=== PATIENT | female | born 1985 | race Caucasian/White ===

== ENCOUNTER 2024-12-07 14:06 | Emergency (ER) | payer OTHER, SELFPAY ==
--- NOTE | ~2024-12-07 | US_ITS ---
RIGHT LOWER EXTREMITY VENOUS ULTRASOUND Ordering provider: Eliza Kaminski PA-C History: . edema, pain, hx DVT . Comparison: None. FINDINGS: --COMMON FEMORAL: Patent and free of thrombus. Normal compressibility, phasic flow and augmentation. --PROXIMAL SUPERFICIAL FEMORAL: Patent and free of thrombus. Normal compressibility, phasic flow and augmentation. --DISTAL SUPERFICIAL FEMORAL: Patent and free of thrombus. Normal compressibility, phasic flow and au gmentation. --POPLITEAL: Patent and free of thrombus. Normal compressibility, phasic flow and augmentation. --POSTERIOR TIBIAL: Patent and free of thrombus. Normal compressibility, phasic flow and augmentation . Thrombosis seen in the greater saphenous vein. IMPRESSION: Thrombosis in the greater saphenous vein. No deep vein thrombosis. Reviewed, dictated and finalized at location A.
--- OUTSIDE RECORDS SUMMARY | 2024-12-07 14:09 | XMS_ITS | Clinical Summary ---
Author Organization [facility] Address [address] [place] [place] [address] Care Team Providers Care Wet Trimmer Name Role Phone Karen Mojica MD Primary Care Provider Source Comments [facility],non-owned Affiliates and Associated Physician Practices is amultiple site organization consisting of ambulatory clinics and hospital sitesin [place], [place]. This disclosure is being madepursuant to the Care Everywhere program and may not contain all information available regarding this patient. Last updated 18.[facility] Allergies Active Allergy Reactions Criticality Noted Date Comments Cefaclor Unknown,Swelling High 10/22/2007 Unknown reaction (occurred when she was a child) Happened in early chilhood - possible overdose. Not sure of reaction. Medications * Be aware that medications may not be up to date on this document. Alwaysverify current medications with the patient. fluticasone propionate (Flonase) 50 MCG/ACT nasal spray INHALE 1 SPRAY IN EACH NOSTRIL EVERY DAY 10/28/19 23 Active spironolactone (Aldactone) 25 MG tablet Take 1 (one) tablet by mouth once daily 30 tablet 08/20/19 25 Active losartan-hydroC HLOROthiazide (Hyzaar) 100-25 MG tablet Take 1 (one) tablet by mouth once daily 30 tablet 08/20/19 25 Active blood glucose test stripIndication s:Type 2 diabetes mellitus without complication, without long-term current use of insulin ([facility]) Use 1 (one) strip once daily 100 strip 4 10/30/19 25 Active Blood Glucose Monitoring Suppl (GlucoCom Monitor) w/Device KITIndications: Type 2 diabetes mellitus without complication, without long-term current use of insulin ([facility]) Use 1 device as directed 1 kit 10/30/19 25 Active lancets MISCIndications :Type 2 diabetes mellitus without complication, without long-term current use of insulin ([facility]) Use 1 Each once daily 100 Each 4 10/30/19 25 Active ONETOUCH DELICA PLUS 30G FINE LANCETS 1 Each once daily 10/31/19 25 Active Semaglutide(0.2 5 or 0.5MG/DOS) 2 MG/3ML Solution Pen-injector (Ozempic (0.25 or 0.5 MG/DOSE))Indica tions:Type 2 diabetes mellitus without complication, without long-term current use of insulin ([facility]),Class 3 severe obesity due to excess calories with serious comorbidity and body mass index (BMI) of 45.0 to 49.9 in adult ([facility]),Metabolic dysfunction-ass ociated steatotic liver disease (MASLD) Inject 0.5 mg subcutaneously every 7 days (once a week) 3 mL 5 11/29/19 25 Active Multiple Vitamins-Minera ls (WOMENS MULTI VITAMIN & MINERAL PO) Take by mouth once daily 025 Discontin ued(List Clean-Up) cetirizine (ZyrTEC) 5 MG tablet Take 1 (one) tablet by mouth once daily 025 Discontin ued(List Clean-Up) tirzepatide (Zepbound) 2.5 MG/0.5ML injectionIndica tions:Class 3 severe obesity due to excess calories with serious comorbidity and body mass index (BMI) of 45.0 to 49.9 in adult ([facility]) Inject 2.5 (two and one-half) mg subcutaneously every 7 days 2 mL 09/18/19 25 025 Discontin ued(Tx Complete) tirzepatide (Zepbound) 5 MG/0.5ML injectionIndica tions:Class 3 severe obesity due to excess calories with serious comorbidity and body mass index (BMI) of 45.0 to 49.9 in adult ([facility]) Inject 5 (five) mg subcutaneously every 7 days 2 mL 09/18/19 25 025 Discontin ued(List Clean-Up) tirzepatide (Zepbound) 7.5 MG/0.5ML injectionIndica tions:Class 3 severe obesity due to excess calories with serious comorbidity and body mass index (BMI) of 45.0 to 49.9 in adult ([facility]) Inject 7.5 (seven and one-half) mg subcutaneously every 7 days 2 mL 09/18/19 25 025 Discontin ued(List Clean-Up) tirzepatide (Zepbound) 10 MG/0.5ML injectionIndica tions:Class 3 severe obesity due to excess calories with serious comorbidity and body mass index (BMI) of 45.0 to 49.9 in adult ([facility]) Inject 10 (ten) mg subcutaneously every 7 days 2 mL 3 09/18/19 25 025 Discontin ued(List Clean-Up) Semaglutide(0.2 5 or 0.5MG/DOS) 2 MG/3ML Solution Pen-injector (Ozempic (0.25 or 0.5 MG/DOSE))Indica tions:Type 2 diabetes mellitus without complication, without long-term current use of insulin ([facility]),Class 3 severe obesity due to excess calories with serious comorbidity and body mass index (BMI) of 45.0 to 49.9 in adult ([facility]),Metabolic dysfunction-ass ociated steatotic liver disease (MASLD) Inject 0.25 mg subcutaneously every 7 days 3 mL 2 10/22/19 25 025 Discontin ued(Reord er) amoxicillin-cla vulanate (Augmentin) 875-125 MG tablet Take 1 (one) tablet by mouth 2 times daily with morning and evening meal 20 tablet 10/22/19 25 025 Discontin ued(Tx Complete) Active Problems Problem Noted Date Diagnosed Date Metabolic dysfunction-associ ated steatotic liver disease (MASLD) 10/21/2024 Prediabetes 03/14/2024 Class 3 severe obesity due t o excess calories with serious comorbidity and body mass index (BMI) of 40.0 to 44.9 in adult 06/21/2023 Hypertension 08/05/2020 06/21/2023 Resolved Problems Problem Noted Date Diagnosed Date Resolved Date 08/29/2022 06/21/2023 10/24/2023 Overview (06/21/2023): Last Assessment & Plan: Chronic HTN on Labetalol 400 mg TID at present. Checks Bps at home and they are ok. Thinks her elevated pressure is do to nerves today. Will get baseline labs and 24 hr urine for protein. H/O A2 DM with prior (was on Lantus). Will check early glucola and A1C. AMA discussed - Discussed risks of chromosomal defects/hypertension/diabetes/miscarriage with increasing age. Discussed optional testing available. Screening folder given and explained to patient. Discussed location of triage. Pt received education on the benefits and management of . Discussed genetic testing options. labs done today. F/U in 4 weeks. Gestational diabetes 02/14/2020 06/21/2023 024 Keloid 05/07/2008 06/21/2023 03/13/2024 Contraceptive surveillance 05/07/2008 06/21/2023 0 10/24/2023 Encounters Date Type Department Care Team Description 12/02/2024 9:00 AM CDT - 12/02/2024 11:59 PM CDT Hospital Encounter [facility] - Diabetes Education [address] [place] [address] Karen Mojica MD Discharge Disposition: Home or Self Care 12/02/2024 Travel 11/28/2024 11:00 AM CDT Office Visit [facility] - Family Medicine [address] [place] [phone] Karen Mojica MD Type 2 diabetes mellitus without complication, without long-term current use of insulin (HCC) (Primary Dx); Class 3 severe obesity due to excess calories with serious comorbidity and body mass index (BMI) of 45.0 to 49.9 in adult (HCC); Metabolic dysfunction-associa lion steatotic liver disease (MASLD); Hypertension, unspecified type 11/25/2024 9:00 AM CDT - 11/25/2024 11:59 PM CDT Hospital Encounter [facility] Diabetes Education [address] [place] [phone] Karen Mojica MD Discharge Disposition: Home or Self Care 11/25/2024 Travel 11/18/2024 9:00 AM CDT - 11/18/2024 11:59 PM CDT Hospital Encounter [facility] Education [address] [place] [phone] Karen Mojica MD Discharge Disposition: Home or Self Care 11/11/2024 9:00 AM CDT - 11/11/2024 11:59 PM CDT Hospital Encounter [facility] Diabetes [address] [address] Karen Mojica MD Discharge Disposition: Home or Self Care 10/29/2024 9:00 AM CDT - 10/29/2024 11:59 PM CDT Hospital Encounter [facility] Education [address] [place] [phone] Karen Mojica MD Discharge Disposition: Home or Self Care 10/29/2024 Nurse Triage [facility] Family [address] [phone] Karen Mojica MD Order 10/28/2024 8:30 AM CDT - 10/28/2024 11:59 PM CDT Hospital Encounter [facility] CL[facility] NUTRITION [address] [place] [phone] Karen Mojica MD Discharge Disposition: Home or Self Care 10/23/2024 Travel 10/21/2024 10:00 AM CDT Office Visit [facility] Family [address] [phone] Karen Mojica MD Type 2 diabetes mellitus without complication, without long-term current use of insulin (Primary Dx); Class 3 severe obesity due to excess calories with serious comorbidity and body mass index (BMI) of 45.0 to 49.9 in adult; Hypertension, unspecified type; Metabolic dysfunction-associa lion steatotic liver disease (MASLD); Sinusitis, unspecified chronicity, unspecified location 10/21/2024 Travel 09/21/2024 8:23 AM CRIMPING MACHINE OPERATOR - 09/21/2024 11:59 PM CRIMPING MACHINE OPERATOR Hospital Encounter [facility] MRI [address] [place] [phone] Juju Almaraz MD Discharge Disposition: Home or Self Care 09/21/2024 Travel 09/19/2024 Telephone [facility] Physician [address] [phone] Saida Dixon, RN Appointment 09/18/2024 1:30 PM CRIMPING MACHINE OPERATOR Office Visit [facility] Physician [address] [phone] Lito Beckett III, MD Class 3 severe obesity due to excess calories with serious comorbidity and body mass index (BMI) of 45.0 to 49.9 in adult (Primary Dx); Metabolic dysfunction-associa lion steatotic liver disease (MASLD); Metabolic syndrome; Prediabetes 09/18/2024 Travel 09/11/2024 2:43 PM CRIMPING MACHINE OPERATOR - 09/11/2024 11:59 PM CRIMPING MACHINE OPERATOR Hospital Encounter [facility] LAB OP DRAW STATION [address] [place] [address] Discharge Disposition: Home or Self Care 09/11/2024 1:30 PM CRIMPING MACHINE OPERATOR Office Visit [facility] Physician [address] [phone] Karen Mojica MD Syn, Wing-Kin, MD Metabolic dysfunction-associa lion steatotic liver disease (MASLD) (Primary Dx); Class 3 severe obesity due to excess calories with serious comorbidity and body mass index (BMI) of 45.0 to 49.9 in adult; Hepatic steatosis; Hepatomegaly; Metabolic syndrome; Elevated liver enzymes 09/11/2024 Travel from Last 3 Months Immunizations Immunization Administration Dates Next Due INFLUENZA VACCINE, TRIV. (AF LURIA, FLUZONE TRIVALENT; 6MO+) (IIV3) 04/08/2021 COVID PFIZER 12+YR 30MCG/0.3mL 04/17/2023 Comirnaty Covd-19 Mrna Vacci ne (Nucleoside Modified) 04/05/2024 Covid Pfizer primary monoval ent 12+ yr 0.3mL Purple cap 05/19/2021,09/10/2020,08/05/2020 DTaP VACCINE IM (6wk-6yrs) 03/24/1990,,1985,1984,1985 FLU VACCINE QUAD IIV4 SPLIT 0.25 ML IM 06/02/2016 HEP A PEDS 2 DOSE 09/29/2006 HEP A VACCINE, ADULT 06/19/2019,11/23/2018 HEP B VACCINE, PED/ADOL 10/26/1998,10/25/1997, HIB VACCINE 01/22/1988 Human Papilloma Virus Alyssa valent Vaccine 01/30/2007,09/29/2006,07/28/2006 INFLUENZA VACCINE 04/05/2024,04/17/2023 INFLUENZA VACCINE, CELL CULT URE, QUADR. (FLUCELVAX QUADRIVALENT; 6MO+) (CCIIV4) 04/17/2023 INFLUENZA VACCINE, QUADR. (F LUZONE; FLULAVAL; FLUARIX; AFLURIA QUADRIVALENT; 6MO+), 0.5 ML (IIV4) 04/20/2022,04/07/2020,04/29/2019,2017 MMR 04/05/1990,03/24/1986 POLIO IPV 03/24/1990, 6,1985,1984 TDAP (7yrs+) 01/23/2023,03/17/2020,11/23/2018 Td (Adult), 2 Lf Tetanus Tox oid, Adsorbed, Pf 10/06/2006,04/22/1990 Family History Medical History Relation Name Comments CAD (Coronary Artery Disease) Father DVT - Deep Vein Thrombosis Father f rom hip surgery and leg Glaucoma Father High Cholesterol Father Hypertension Father Alzheimer's Disease Maternal Grandfather 2009 Diabetes - Type 2 Maternal Grandfather High Blood Pressure Maternal Grandfather Dementia Maternal Grandmother Hypertension Maternal Grandmother Alzheimer's Disease Mother since 12 06 Hypertension Mother Other Mother pre diabetic CAD (Coronary Artery Disease) Paternal Grandfather from heart attack Other Paternal Grandmother passed in 2003 -beka gehrig's disease Relation Name Status Comments Father Alive Maternal Grandfather Maternal Grandmother Alive Mother Alive Paternal Grandfather Paternal Grandmother Social History Tobacco Use Types Packs/Day Years Used Date Smoking Tobacco: Never Passive Smoke Exposure: Never Smokeless Tobacco: Never Tobacco Cessation:Counseling Given: No Alcohol Use Standard Drinks/Week Comments Not Currently 0 (1 standard drink = 0.6 oz pur e alcohol) social PHQ-2 Answer Date Recorded Patient Health Questionnaire-2 Score 0 11/21/2024 Comments No Sex and Gender Information Value Date Recorded Sex Assigned at Not on file Legal Sex Female 1:58 PM CRIMPING MACHINE OPERATOR Gender Identity Not on file Sexual Orientation Not on file Last Filed Vital Signs Vital Sign Reading Time Taken Comments Blood Pressure 127/85 11/28/2024 11:22 AM CDT Pulse 82 11/28/2024 11:22 AM CDT Temperature 36.9 C (98.4 F) 11/28/2024 11:22 AM CDT Respiratory Rate 12 01/08/2024 8:39 AM CDT Oxygen Saturation 98% 11/28/2024 11: 22 AM CDT Inhaled Oxygen Concentration - - Weight 132.1 kg (291 lb 3.2 oz) 025 11:22 AM CDT Height 170.2 cm (5' 7 ) 11/28/2024 11:2 2 AM CDT Body Mass Index 45.61 11/28/2024 11:22 AM CDT Plan of Treatment Upcoming Encounters Date Type Department Care Team (Late st Contact Info) Description 12/25/2024 12:30 PM CDT Office Visit [facility] - GI [address] [facility] [place] [phone] Juju Almaraz MD [address] [facility] [address] [place] [phone] 12/30/2024 9:40 AM CDT Office Visit [facility] - Family Medicine [address] [facility], [address] [phone] Karen Mojica MD [address] [place] [address] 01/29/2025 3:00 PM CDT Office Visit [facility] - [address] [place] [phone] Lito Beckett III, MD [address] [facility] [address] [place] [phone] 02/25/2025 9:00 AM CDT Office Visit [facility] - General Dermatology [address], [facility] [address] [place] [address] Gabriella Alexander, [address] [place] [address] Health Maintenance Due Date Last Done Comments PNEUMOCOCCAL VACCINE (1 of 2 - PCV) 01/06/2004 COVID-19 VACCINE ( - 2023- season) 2024 04/05/2024, 04/17/2023, 05/19/2021, Additional history exists PAP SMEAR 05/08/2026 05/08/2023, 07/2022, 04/05/2012 DTAP/TDAP/TD VACCINES (9 - Td or Tdap) 01/23/2033 01/23/2023, 03/17/2020, 11/23/2018, Additional history exists ZOSTER VACCINE (1 of 2) 2035 HIB VACCINE Completed 01/22/1988 HEPATITIS B VACCINE Completed 10/26/1998, 10/25/1997, 09/25/1995 HPV VACCINE Completed 01/30/2007, 03/2007, 07/28/2006 HIV SCREENING Completed 08/24/2022 INFLUENZA VACCINE Completed 04/05/2024, , 04/17/2023, Additional history exists DEPRESSION SCREENING Completed 08/20/2024, 07/26/2023, 06/21/2023 HEPATITIS C SCREENING Completed 09/11/2024 , 06/10/2024, 08/16/2023, Additional history exists MENINGOCOCCAL (Group B) VACCINE SHARED DECISION-MAKING Aged Out No longer eligible based on patient's age to complete this topic MENINGOCOCCAL GROUPS A/C/Y/W VACCINE Aged Out No longer eligible based on patient's age to complete this topic Goals Goal Patient Goal Type Associated Problems Recent Progress Patient-Stated? Author Medication Management General On track( 025 2:15 PM CRIMPING MACHINE OPERATOR) Saida Dick, CAROLINE Note: Expected end date: ongoing Interventions: Take all medications as prescribed Procedures Procedure Name Priority Date/Time Associated Diagnosis Comments HEMOGLOBIN A1C Routine 09/26/2024 8:19 AM CRIMPING MACHINE OPERATOR Prediabetes MRI ELASTOGRAPHY Routine 09/21/2024 9:23 AM CRIMPING MACHINE OPERATOR Hepatic steatosis HEPATITIS C ANTIBODY Routine 09/11/2024 3:02 PM CRIMPING MACHINE OPERATOR Hepatic steatosis HEPATITIS B CORE ANTIBODY TOTAL Routine 09/11/2024 3:02 PM CRIMPING MACHINE OPERATOR Hepatic steatosis MITOCHONDRIAL ANTIBODY SCREEN Routine 09/11/2024 3:02 PM CRIMPING MACHINE OPERATOR Hepatic steatosis TISSUE TRANSGLUTAMINASE AB IGA Routine 09/11/2024 3:02 PM CRIMPING MACHINE OPERATOR Hepatic steatosis IGG SUBCLASS 4 Routine 09/11/2024 3:02 PM CRIMPING MACHINE OPERATOR Hepatic steatosis IGG BLOOD Routine 09/11/2024 3:02 PM CRIMPING MACHINE OPERATOR Hepatic steatosis FERRITIN Routine 09/11/2024 3:02 PM CRIMPING MACHINE OPERATOR Hepatic steatosis CERULOPLASMIN Routine 09/11/2024 3:02 PM CRIMPING MACHINE OPERATOR Hepatic steatosis ROBBY BLOOD SCREEN W/REFLEX TITER Routine 09/11/2024 3:02 PM CRIMPING MACHINE OPERATOR Hepatic steatosis ENDOMYSIAL ANTIBODY IGA Routine 09/11/19 3:02 PM CRIMPING MACHINE OPERATOR Hepatic steatosis IGA BLOOD Routine 09/11/2024 3:02 PM CRIMPING MACHINE OPERATOR Hepatic steatosis SLA AUTOANTIBODY Routine 09/11/2024 3:02 PM CRIMPING MACHINE OPERATOR Hepatic steatosis MICROSOMAL ANTIBODY LIVER/KIDNEY Routine 09/11/2024 3:02 PM CRIMPING MACHINE OPERATOR Hepatic steatosis IGM BLOOD Routine 09/11/2024 3:02 PM CRIMPING MACHINE OPERATOR Hepatic steatosis PGNIZ-[id number] BLOOD Routine 09/11/2024 3:02 PM CRIMPING MACHINE OPERATOR Hepatic steatosis CBC W AUTO DIFFERENTIAL Routine 09/11/19 25 3:02 PM CRIMPING MACHINE OPERATOR Hepatic steatosis COMPREHENSIVE METABOLIC PANEL Routine 09/11/2024 3:02 PM CRIMPING MACHINE OPERATOR Hepatic steatosis PT-INR SLH Routine 09/11/2024 3:02 PM CRIMPING MACHINE OPERATOR Hepatic steatosis LIVER CYTOSOLIC AG TYPE 1 (LC-1) AB IGG Routine 09/11/2024 3:02 PM CRIMPING MACHINE OPERATOR Hepatic steatosis SMOOTH MUSCLE ANTIBODY W REFLEX TITER Routine 09/11/2024 3:02 PM CRIMPING MACHINE OPERATOR Hepatic steatosis from Last 3 Months Results * (ABNORMAL) HEMOGLOBIN A1C (09/26/2024 8:19 AM CRIMPING MACHINE OPERATOR) Hemoglobin A1c 7.0(H) <5.7 % of total Hgb [facility] Comment: For someone without known diabetes, a hemoglobin A1c value of 6.5% or greater indicates that they may have diabetes and this should be confirmed with a follow-up test. For someone with known diabetes, a value <7% indicates that their diabetes is well controlled and a value greater than or equal to 7% indicates suboptimal control. A1c targets should be individualized based on duration of diabetes, age, comorbid conditions, and other considerations. Currently, no consensus exists regarding use of hemoglobin A1c for diagnosis of diabetes for children. Test Performed at: [id number] [id number] SIXTO DAUGHERTY MD Blood BLOOD SPECIMEN / Unknown 09/26/2024 8:19 AM CRIMPING MACHINE OPERATOR 09/26/2024 8:19 AM CRIMPING MACHINE OPERATOR Lito Beckett III, MD LAB - CHEMISTRY ORDERABLE S Final Result [facility] [id number] [place] [address] * MRI Elastography (09/21/2024 9:23 AM CRIMPING MACHINE OPERATOR) Anatomical Region Laterality Modality Abdomen Magnetic Resonan ce 09/23/2024 10:2 6 AM CRIMPING MACHINE OPERATOR Impressions 09/23/2024 10:58 AM CRIMPING MACHINE OPERATOR IMPRESSION: 1.Mean liver stiffness: 2.7 kPa. MR elastography estimates of hepatic stiffness (at 60 Hz) correlated with hepatic fibrosis stage: 2.5 - 2.9 kPa: Normal or inflammation.. 2.Hepatomegaly and diffuse moderate hepatic steatosis. 3.Borderline splenomegaly. Reference values (reference: Amor SK, et al. Magnetic resonance elastography of liver: Magn Reson Imaging Clin N Am 2014; 22(3):433-446). < 2.5 kPa: Normal. 2.5 - 2.9 kPa: Normal or Inflammation. 3.0 - 3.5 kPa: Stage 1 to 2 fibrosis. 3.6 - 4.0 kPa: State 2 to 3 fibrosis. 4.1 to 5.0 kPa: State 3 to 4 fibrosis. > 5 kPa: State 4 fibrosis or Cirrhosis. I, Talat Antonio MD have personally reviewed and interpreted this examination/study. > Interpreting Provider: Talat Antonio MD on 09/23/2024 10:58 AM Narrative 09/23/2024 10:58 AM CRIMPING MACHINE OPERATOR PROCEDURE: MRI ELASTOGRAPHY, DATE/TIME OF EXAM: 09/21/2024 9:23 AM, LOCATION [facility] INDICATION: K76.0: Hepatic steatosis ADDITIONAL CLINICAL INFORMATION: Ordering Provider Reason For Exam: [facility]nern for [facility] Technologist Note: Additional: COMPARISON: None. Protocol: Magnetic resonance imaging of the abdomen was performed without intravenous Gadolinium contrast. MR elastography was performed using the Resoundant system. Contrast: None COMPARISON: No prior magnetic resonance imaging is available for comparison. FINDINGS: Elastography: MR elastography was performed which demonstrated a mean liver stiffness of 2.7 kilopascals (kPa). This is consistent with normal liver stiffness (<2.5 kPa). Liver: Hepatomegaly. There is diffuse moderate hepatic steatosis. Focal liver lesions: None Bile ducts: Intrahepatic and extra hepatic bile duct are nondilated Gallbladder: There is a 2 mm filling defect along the nondependent portion of the gallbladder (series 3 image 31), likely a stone or polyp. Pancreas: Unremarkable Spleen: Borderline enlarged, measuring 13.5 cm it Adrenals: Unremarkable. Kidneys: A subcentimeter right kidney cyst, otherwise unremarkable. Other Findings: None. Procedure Note Talat Antonio MD - 09/23/2024 PROCEDURE: MRI ELASTOGRAPHY, DATE/TIME OF EXAM: 09/21/2024 9:23 AM, LOCATION [facility] INDICATION: K76.0: Hepatic steatosis ADDITIONAL CLINICAL INFORMATION: Ordering Provider Reason For Exam: [facility]n [facility] Technologist Note: Additional: COMPARISON: None. Protocol: Magnetic resonance imaging of the abdomen was performedwithout intravenous Gadolinium contrast. MR elastography was performed using the Resoundant system. Contrast: None COMPARISON: No prior magnetic resonance imaging is available for comparison. FINDINGS: Elastography: MR elastography was performed which demonstrated a meanliver stiffness of 2.7 kilopascals (kPa). This is consistent with normal liver stiffness (<2.5 kPa). Liver: Hepatomegaly. There is diffuse moderate hepatic steatosis. Focal liver lesions: None Bile ducts: Intrahepatic and extra hepatic bile duct are nondilated Gallbladder: There is a 2 mm filling defect along the nondependentportion of the gallbladder (series 3 image 31), likely a stone or polyp. Pancreas: Unremarkable Spleen: Borderline enlarged, measuring 13.5 cm it Adrenals: Unremarkable. Kidneys: A subcentimeter right kidney cyst, otherwise unremarkable. Other Findings: None. IMPRESSION: 1.Mean liver stiffness: 2.7 kPa. MR elastography estimates of hepatic stiffness (at 60 Hz) correlated with hepatic fibrosis stage: 2.5 - 2.9kPa: Normal or inflammation.. 2.Hepatomegaly and diffuse moderate hepatic steatosis. 3.Borderline splenomegaly. Reference values (reference: Amor SK, et al. Magnetic resonance elastography of liver: Magn Reson Imaging Clin N Am 2014; 22(3):433-446). < 2.5 kPa: Normal. 2.5 - 2.9 kPa: Normal or Inflammation. 3.0 - 3.5 kPa: Stage 1 to 2 fibrosis. 3.6 - 4.0 kPa: State 2 to 3 fibrosis. 4.1 to 5.0 kPa: State 3 to 4 fibrosis. > 5 kPa: State 4 fibrosis or Cirrhosis. I, Talat Antonio MD have personally reviewed and interpreted this examination/study. > Interpreting Provider: Talat Antonio MD on 0:58 AM Juju Almaraz MD MR ORDERABLES Final Result * PT-INR [facility] (09/11/2024 3:02 PM CRIMPING MACHINE OPERATOR) PT 13.1 12.1 - 14.8 Seconds 09/11/2024 3:48 PM CRIMPING MACHINE OPERATOR [facility] INR 1.0 See Comment 09/11/2024 3:48 PM CRIMPING MACHINE OPERATOR [facility] Comment:The suggested therap eutic range for standard coumadin (warfarin) therapy is an INR of 2.0-3.0. For high-risk patients (Mechanical Mitral Valve Prosthesis, etc.), the suggested prophylactic therapeutic range is an INR of 2.5-3.5. Blood BLOOD SPECIMEN / Unknown Lab Venipuncture / Unknown 09/11/2024 3:02 PM CRIMPING MACHINE OPERATOR 09/11/2024 3:18 PM CRIMPING MACHINE OPERATOR Juju Almaraz MD LAB - COAGULATION ORDERABLES Fin al Result [facility] [address] [place] [phone], [facility] [phone] * SOLUBLE LIVER ANTIGEN (SLA) ANTIBODY (09/11/2024 3:02 PM CRIMPING MACHINE OPERATOR) Soluable Liver Antigen Antibody IgG 1.9 0.0 - 24.9 U 09/15/2024 7:45 PM CRIMPING MACHINE OPERATOR [employer] ([facility]) Comment: REFERENCE INTERVAL: Soluble Liver Antigen Antibody, IgG 0.0 - 20.0 U ........... Negative 20.1 - 24.9 U ........... Equivocal 25.0 U or greater ....... Positive The presence of SLA antibodies has almost 100% specificity for autoimmune hepatitis, although only 12-30% have these antibodies. Thus, a negative SLA IgG test does not rule out autoimmune hepatitis. Performed by [facility], [address] [place] [address] [email or web address], Gonsalo Montiel MD, Lab. Director CLIA Number: [id number] Blood BLOOD SPECIMEN / Unknown Lab Venipuncture / Unknown 09/11/2024 3:02 PM CRIMPING MACHINE OPERATOR 09/11/2024 3:18 PM CRIMPING MACHINE OPERATOR Juju Almaraz MD LAB - SEROLOGY ORDERABLES Final Result Performing Organization Address [facility] de Phone Number [employer] [facility]) [address] [place] [address] * IGG SUBCLASS 4 (09/11/2024 3:02 PM CRIMPING MACHINE OPERATOR) IgG Subclass 4 70 1 - 123 mg/dL 09/14/2024 12:43 AM CRIMPING MACHINE OPERATOR [employer] ([facility]) Comment: REFERENCE INTERVAL: Immunoglobulin G Subclass 4 Access complete set of age- and/or gender-specific reference intervals for this test in the [facility] Test Directory ([employer]). Performed By: [facility] [address] [place] [address] Labeling Strategist: Jonathan Acevedo MD, PhD CLIA Number: [id number] Blood BLOOD SPECIMEN / Unknown Lab Venipuncture / Unknown 09/11/2024 3:02 PM CRIMPING MACHINE OPERATOR 09/11/2024 3:18 PM CRIMPING MACHINE OPERATOR Juju Almaraz MD LAB - CHEMISTRY ORDERABLES Final Result Performing Organization Address [facility]/ZIP Co de Phone Number [employer] ([facility]) [address] [place] [address] * LIVER CYTOSOLIC AG TYPE 1 (LC-1) AB IGG (09/11/2024 3:02 PM CRIMPING MACHINE OPERATOR) Pathologist [facility] Liver Cytosolic Type 1 IgG Negative Negative 09/16/2024 5:55 PM CRIMPING MACHINE OPERATOR [facility] ([facility]) Comment: Performed By: [facility] [address] [place] [address] Labeling Strategist: Jonathan Acevedo MD, PhD CLIA Number: [id number] Blood BLOOD SPECIMEN / Unknown Lab Venipuncture / Unknown 09/11/2024 3:02 PM CRIMPING MACHINE OPERATOR 09/11/2024 3:18 PM CRIMPING MACHINE OPERATOR [facility] LAB - CHEMISTRY ORDERABLES Final Result [facility]) [address] [place] [address] * SMOOTH MUSCLE ANTIBODY W REFLEX TITER (09/11/2024 3:02 PM CRIMPING MACHINE OPERATOR) Pathologist [facility] F-Actin Antibody IgG 4 0 - 19 Units 09/14/2024 11:35 AM CRIMPING MACHINE OPERATOR [facility] ([facility]) Comment: If F-Actin (Smooth Muscle) Antibody, IgG is negative, the Smooth Muscle Antibody titer by IFA is not performed. REFERENCE INTERVAL: F-Actin (Smooth Muscle) Antibody, IgG by ALAINA 19 Units or less ....... Negative 20 - 30 Units .......... Weak Positive-Suggest repeat testing in two to three weeks with fresh specimen. 31 Units or greater..... Positive-Suggestive of autoimmune hepatitis type 1 or chronic active hepatitis. F-actin IgG antibodies have been shown to have increased sensitivity for autoimmune hepatitis (AIH) but lower specificity than smooth muscle antibodies (SMA). F-actin IgG antibodies can also be seen in SMA-negative disease controls (non-AIH), especially in patients with primary biliary cirrhosis and chronic hepatitis C infections. Some patients with AIH may be SMA-positive but negative for F-actin IgG. Consider testing for SMA by IFA if suspicion for AIH is strong. Performed By: [facility] [address] [place] [address] Labeling Strategist: Jonathan Acevedo MD, PhD CLIA Number: [id number] Blood BLOOD SPECIMEN / Unknown Lab Venipuncture / Unknown 09/11/2024 3:02 PM CRIMPING MACHINE OPERATOR 09/11/2024 3:18 PM CRIMPING MACHINE OPERATOR Juju Almaraz MD LAB - SEROLOGY ORDERABLES Final Result Performing Organization Address [facility] de Phone Number [employer] [facility]) [address] * MITOCHONDRIAL ANTIBODY SCREEN (09/11/2024 3:02 PM CRIMPING MACHINE OPERATOR) Mitochondrial M2 Antibody 12.1 0.0 - 24.9 Units 09/14/2024 11:35 AM CRIMPING MACHINE OPERATOR [employer] ([facility]) Comment: REFERENCE INTERVAL: Mitochondrial (M2) Antibody, IgG 20.0 Units or less ......... Negative 20.1 - 24.9 Units........... Equivocal 25.0 Units or greater....... Positive Anti-mitochondrial antibodies (AMA) are thought to be present in 90-95% of patients with primary biliary cholangitis (PBC). However, the frequency of detected antibodies may be cohort or assay dependent, as lower sensitivities have been reported. Not all PBC patients are positive for AMA; some patients may be positive for SP100 and/or GP210 antibodies. A negative result does not rule out PBC. Performed By: [facility] [address] [place] [address] Labeling Strategist: Jonathan Acevedo MD, PhD CLIA Number: [id number] Blood BLOOD SPECIMEN / Unknown Lab Venipuncture / Unknown 09/11/2024 3:02 PM CRIMPING MACHINE OPERATOR 09/11/2024 3:18 PM CRIMPING MACHINE OPERATOR us Juju Almaraz MD LAB - CHEMISTRY ORDERABLES Final Result Performing Organization Address [facility] Co de Phone Number [facility]) [address] [place] [address] * TISSUE TRANSGLUTAMINASE AB IGA (09/11/2024 3:02 PM CRIMPING MACHINE OPERATOR) [id number]|2024-12-07 15:23:23|2024-12-07 15:23:23|ED.LOWEXIN||||"HPI - Extremity Injury (Lower) General Chief Complaint: Extremity Injury, Lower <Eliza Kaminski PA-C - Last Filed: 12/07/24 19:42> Stated Complaint: RLE swelling, pain, PMH of blood clots <Eliza Kaminski PA-C - Last Filed: 12/07/24 19:42> Time Seen by Provider: 12/07/24 15:23 <Eliza Kaminski PA-C - Last Filed: 12/07/24 19:42> Focused HPI: This is a 39 year old female that presents to the ER for possible blood clots. Reports history of superficial clots before. Reports swelling in the right thigh ongoing over the last 5 days. Also reports some redness, palpable cord. Reports fevers. Denies chest pain or shortness of breath. She is not on any anticoagulation. Reports recent travel. GENERAL: Well-appearing, well-nourished, and in no acute distress. HEAD: Normocephalic, atraumatic. CHEST: Clear to auscultation. No respiratory distress. HEART: Regular rate and rhythm. NEURO: Alert and oriented x3. Patient screened in triage and initial orders placed. Additional care and disposition to be based upon diagnostic testing and treatment. <Eliza Kaminski PA-C - Last Filed: 12/07/24 19:42> History of Present Illness HPI Narrative: Agree with HPI. No known trauma but has children that upon her and she has been more physically active since diabetes diagnosis. Recently increased her dose of Ozempic. No hormone use. <Navi Grant MD - Last Filed: 12/07/24 18:50> Review of Systems Constitutional: Constitutional: Reports no additional constitutional complaints <Navi Grant MD - Last Filed: 12/07/24 18:50> Cardiovascular: Cardiovascular: Reports no additional cardiovascular complaints <Navi Grant MD - Last Filed: 12/07/24 18:50> Respiratory: Respiratory: Reports no additional respiratory complaints <Navi Grant MD - Last Filed: 12/07/24 18:50> Musculoskeletal: Musculoskeletal: Reports no additional musculoskeletal complaints <Navi Grant MD - Last Filed: 12/07/24 18:50> Integumentary/Breasts: Skin/Breast: Reports system reviewed and no additional complaints, except as docu <Navi Grant MD - Last Filed: 12/07/24 18:50> PMFSH Past Medical History Medical History: Medical History (Updated 12/07/24 @ 19:42 by Eliza Kaminski PA-C) Superficial thrombophlebitis Diabetes <Eliza Kaminski PA-C - Last Filed: 12/07/24 19:42> Surgical History Surgical History: Surgical History (Updated 12/07/24 @ 18:46 by Navi Grant MD) History of section <Eliza Kaminski PA-C - Last Filed: 12/07/24 19:42> Exam Narrative: GENERAL: Well-appearing, well-nourished, and in no acute distress. HEAD: Normocephalic, atraumatic. ENT: Mucous membranes moist. EXTREMITIES: Normal range of motion. No edema. SKIN: Warm, dry, no rash. Palpable cord right medial proximal thigh consistent with superficial thrombophlebitis. NEURO: Alert and oriented x3. PSYCH: Normal mood and affect. <Navi Grant MD - Last Filed: 12/07/24 18:50> Course Course Emergency Course: Patient resting comfortably. Discussed treatment plan and she verbalized understanding. Compressive Abdias wrap applied. Discussed warm compresses/NSAIDs. Follow-up with PCP. <Navi Grant MD - Last Filed: 12/07/24 18:50> Vital Signs Vital signs: Vital Signs Temperature 98.7 F 12/07/24 14:11 Pulse Rate 117 H 12/07/24 14:11 Respiratory Rate 18 12/07/24 14:11 Blood Pressure 142/69 H 12/07/24 14:11 Pulse Oximetry 100 12/07/24 14:11 Temperature 98.7 F 12/07/24 14:11 Pulse Rate 118 H 12/07/24 17:37 Respiratory Rate 20 12/07/24 17:37 Blood Pressure 129/73 12/07/24 17:37 Pulse Oximetry 100 12/07/24 17:37 <Eliza Kaminski PA-C - Last Filed: 12/07/24 19:42> Vital Signs Temperature 98.7 F 12/07/24 14:11 Pulse Rate 117 H 12/07/24 14:11 Respiratory Rate 18 12/07/24 14:11 Blood Pressure 142/69 H 12/07/24 14:11 Pulse Oximetry 100 12/07/24 14:11 Temperature 98.7 F 12/07/24 14:11 Pulse Rate 118 H 12/07/24 17:37 Respiratory Rate 20 12/07/24 17:37 Blood Pressure 129/73 12/07/24 17:37 Pulse Oximetry 100 12/07/24 17:37 <Navi Grant MD - Last Filed: 12/07/24 18:50> MDM - Extremity Injury (Lower) Lab Data Result diagrams: 12/07/24 17:40 12/07/24 17:40 <Eliza Kaminski PA-C - Last Filed: 12/07/24 19:42> Labs: Lab Results 12/07/24 12/07/24 Range/Units 17:40 17:57 WBC 7.1 (4.5-10.0) K/mm3 RBC 4.52 (4.2-5.4) M/mm3 Hgb 12.7 (12.0-15.0) g/dL Hct 39.0 (37.0-47.0) % MCV 86.3 (80-100) fl MCH 28.1 (26-34) pg MCHC 32.6 (32-36) g/dl RDW 13.8 (11.5-14.5) % Plt Count 252 (150-375) k/mm3 MPV 10.2 (7.4-10.4) fl Immature Gran % (Auto) 1.0 H (0-0.5) % Neut % (Auto) 56.4 (45.5-73.1) % Lymph % (Auto) 31.5 (18.3-44.2) % Summers % (Auto) 6.9 (2.6-8.5) % Eos % (Auto) 3.5 (0-4.4) % Baso % (Auto) 0.7 (0.2-1.2) % Lymph # (Auto) 2.23 (0.9-3.2) K/mm3 Summers # (Auto) 0.5 (0.1-0.6) K/mm3 Eos # (Auto) 0.3 (0-0.3) K/mm3 Baso # (Auto) 0.1 (0.0-0.1) K/mm3 Abs Immat Gran (auto) 0.07 H (0.00-0.031) K/mm3 Absolute Neuts (auto) 4.0 (1.3-6.7) K/mm3 Absolute Nucleated RBC 0.000 (0.0-0.012) K/mm3 Band Neutrophils % Not Reportable Nucleated RBC % 0.0 (0.0-0.2) % Atypical Lymphocytes Present Platelet Estimate Adequate (Adequate) Large Platelets Present Giant Platelets Present Schistocytes None seen ESR 18 (0-20) mm/hr PT 13.9 (11.1-14.7) Seconds INR 1.0 APTT 25.3 (22.3-36.8) Seconds D-Dimer 1.88 H (<0.48) ug/mL Sodium 133 L (137-145) mmol/L Potassium 3.4 (3.4-5.0) mmol/L Chloride 97 L (98-107) mmol/L Carbon Dioxide 26 (22-30) mmol/L Anion Gap 10 (4-12) mmol/L BUN 17 (7-17) mg/dL Creatinine 0.98 (0.7-1.0) mg/dL Estim Creat Clear Calc 96 ml/min Estimated GFR > 60 (59 - ) Glucose 115 H (65-110) mg/dL Calcium 9.3 (8.4-10.2) mg/dL C-Reactive Protein 1.1 (<1.0) mg/dL POC Urine HCG, Qual Negative (Negative) <Eliza Kaminski PA-C - Last Filed: 12/07/24 19:42> Lab Results 12/07/24 12/07/24 Range/Units 17:40 17:57 WBC 7.1 (4.5-10.0) K/mm3 RBC 4.52 (4.2-5.4) M/mm3 Hgb 12.7 (12.0-15.0) g/dL Hct 39.0 (37.0-47.0) % MCV 86.3 (80-100) fl MCH 28.1 (26-34) pg MCHC 32.6 (32-36) g/dl RDW 13.8 (11.5-14.5) % Plt Count 252 (150-375) k/mm3 MPV 10.2 (7.4-10.4) fl Immature Gran % (Auto) 1.0 H (0-0.5) % Neut % (Auto) 56.4 (45.5-73.1) % Lymph % (Auto) 31.5 (18.3-44.2) % Summers % (Auto) 6.9 (2.6-8.5) % Eos % (Auto) 3.5 (0-4.4) % Baso % (Auto) 0.7 (0.2-1.2) % Lymph # (Auto) 2.23 (0.9-3.2) K/mm3 Summers # (Auto) 0.5 (0.1-0.6) K/mm3 Eos # (Auto) 0.3 (0-0.3) K/mm3 Baso # (Auto) 0.1 (0.0-0.1) K/mm3 Abs Immat Gran (auto) 0.07 H (0.00-0.031) K/mm3 Absolute Neuts (auto) 4.0 (1.3-6.7) K/mm3 Absolute Nucleated RBC 0.000 (0.0-0.012) K/mm3 Band Neutrophils % Not Reportable Nucleated RBC % 0.0 (0.0-0.2) % Atypical Lymphocytes Present Platelet Estimate Adequate (Adequate) Large Platelets Present Giant Platelets Present Schistocytes None seen ESR 18 (0-20) mm/hr PT 13.9 (11.1-14.7) Seconds INR 1.0 APTT 25.3 (22.3-36.8) Seconds D-Dimer 1.88 H (<0.48) ug/mL Sodium 133 L (137-145) mmol/L Potassium 3.4 (3.4-5.0) mmol/L Chloride 97 L (98-107) mmol/L Carbon Dioxide 26 (22-30) mmol/L Anion Gap 10 (4-12) mmol/L BUN 17 (7-17) mg/dL Creatinine 0.98 (0.7-1.0) mg/dL Estim Creat Clear Calc 96 ml/min Estimated GFR > 60 (59 - ) Glucose 115 H (65-110) mg/dL Calcium 9.3 (8.4-10.2) mg/dL C-Reactive Protein 1.1 (<1.0) mg/dL POC Urine HCG, Qual Negative (Negative) <Navi Grant MD - Last Filed: 12/07/24 18:50> Imaging Data Radiologist's impression: ITS Impressions Venous Doppler Study 12/07/24 16:18 IMPRESSION: Thrombosis in the greater saphenous vein. No deep vein thrombosis. <Navi Grant MD - Last Filed: 12/07/24 18:50> Discharge Plan Discharge Clinical Impression: Superficial thrombophlebitis Qualifiers: Superficial thrombophlebitis-Involved body area: lower extremity Laterality: right Qualified Code(s): I80.01 - Phlebitis and thrombophlebitis of superficial vessels of right lower extremity <Eliza Kaminski PA-C - Last Filed: 12/07/24 19:42> Patient Disposition: Home <Eliza Kaminski PA-C - Last Filed: 12/07/24 19:42> Condition: Stable <Eliza Kaminski PA-C - Last Filed: 12/07/24 19:42> Instructions: Superficial Thrombophlebitis (ED) <Eliza Kaminski PA-C - Last Filed: 12/07/24 19:42> Additional Instructions: Return ER if you have difficulty breathing, difficulty swelling, you develop chest pain, you lose consciousness, or you have increased pain/swelling to your right lower extremity. <Eliza Kaminski PA-C - Last Filed: 12/07/24 19:42> Patient Language: Tajik <JOANIE Mejía Last Filed: 12/07/24 19:42> Prescriptions: New naproxen 375 mg tablet 375 mg PO BID Qty: 14 0RF <Eliza Kaminski PA-C - Last Filed: 12/07/24 19:42> Follow-up/Referrals: PHYSICIAN NOT ON STAFF,NONSTAFF [Primary Care Provider] - 1 Week <Eliza Kaminski PA-C - Last Filed: 12/07/24 19:42>"
[2024-12-07 14:11] VITALS: BP 142/69; PULSE 117; RESP 18; TEMP 37.1; O2SAT 100
--- NOTE | 2024-12-07 15:23 | ED_ITS ---
HPI - Extremity Injury (Lower) General Chief Complaint: Extremity Injury, Lower <Eliza Kaminski PA-C - Last Filed: 12/07/24 19:42> Stated Complaint: RLE swelling, pain, PMH of blood clots <Eliza Kaminski PA-C - Last Filed: 12/07/24 19:42> Time Seen by Provider: 12/07/24 15:23 <Eliza Kaminski PA-C - Last Filed: 12/07/24 19:42> Focused HPI: This is a 39 year old female that presents to the ER for possible blood clots. Reports history of superficial clots before. Reports swelling in the right thigh ongoing over the last 5 days. Also reports some redness, palpable cord. Reports fevers. Denies chest pain or shortness of breath. She is not on any anticoagulation. Reports recent travel. GENERAL: Well-appearing, well-nourished, and in no acute distress. HEAD: Normocephalic, atraumatic. CHEST: Clear to auscultation. No respiratory distress. HEART: Regular rate and rhythm. NEURO: Alert and oriented x3. Patient screened in triage and initial orders placed. Additional care and disposition to be based upon diagnostic testing and treatment. <Eliza Kaminski PA-C - Last Filed: 12/07/24 19:42> History of Present Illness HPI Narrative: Agree with HPI. No known trauma but has children that upon her and she has been more physically active since diabetes diagnosis. Recently increased her dose of Ozempic. No hormone use. <Navi Grant MD - Last Filed: 12/07/24 18:50> Review of Systems 2 Constitutional: Constitutional: Reports no additional constitutional complaints <Navi Grant MD - Last Filed: 12/07/24 18:50> Cardiovascular: Cardiovascular: Reports no additional cardiovascular complaints <Navi Grant MD - Last Filed: 12/07/24 18:50> Respiratory: Respiratory: Reports no additional respiratory complaints < Navi Grant MD - Last Filed: 12/07/24 18:50> Musculoskeletal: Musculoskeletal: Reports no additional musculoskeletal complaints <Navi Grant MD - Last Filed: 12/07/24 18:50> Integumentary/Breasts: Skin/Breast: Reports system reviewed and no additional complaints, except as docu <Navi Grant MD - Last Filed: 12/07/24 18:50> PMFSH Past Medical History Medical History: Medical History (Updated 12/07/24 @ 19:42 by Eliza Kaminski PA-C) Superficial thrombophlebitis Diabetes <Eliza Kaminski PA-C - Last Filed: 12/07/24 19:42> Surgical History Surgical History: Surgical History (Updated 12/07/24 @ 18:46 by Navi Grant MD) History of section <Eliza Kaminski PA-C - Last Filed: 12/07/24 19:42> Exam 2 Narrative: GENERAL: Well-appearing, well-nourished, and in no acute distress. HEAD: Normocephalic, atraumatic. ENT: Mucous membranes moist. EXTREMITIES: Normal range of motion. No edema. SKIN: Warm, dry, no rash. Palpable cord right medial proximal thigh consistent with superficial thrombophlebitis. NEURO: Alert and oriented x3. PSYCH: Normal mood and affect. <Navi Grant MD - Last Filed: 12/07/24 18:50> Course Course Emergency Course: Patient resting comfortably. Discussed treatment plan and she verbalized understanding. Compressive Abdias wrap applied. Discussed warm compresses/NSAIDs. Follow-up with PCP. <Navi Grant MD - Last Filed: 12/07/24 18:50> Vital Signs Vital signs: Vital Signs Temperature 98.7 F 12/07/24 14:11 Pulse Rate 117 H 12/07/24 14:11 Respiratory Rate 18 12/07/24 14:11 Blood Pressure 142/69 H 12/07/24 14:11 Pulse Oximetry 100 12/07/24 14:11 Temperature 98.7 F 12/07/24 14:11 Pulse Rate 118 H 12/07/24 17:37 Respiratory Rate 20 12/07/24 17:37 Blood Pressure 129/73 12/07/24 17:37 Pulse Oximetry 100 12/07/24 17:37 <Eliza Kaminski PA-C - Last Filed: 12/07/24 19:42> Vital Signs Temperature 98.7 F 12/07/24 14:11 Pulse Rate 117 H 12/07/24 14:11 Respiratory Rate 18 12/07/24 14:11 Blood Pressure 142/69 H 12/07/24 14:11 Pulse Oximetry 100 12/07/24 14:11 Temperature 98.7 F 12/07/24 14:11 Pulse Rate 118 H 12/07/24 17:37 Respiratory Rate 20 12/07/24 17:37 Blood Pressure 129/73 12/07/24 17:37 Pulse Oximetry 100 12/07/24 17:37 <Navi Grant MD - Last Filed: 12/07/24 18:50> MDM - Extremity Injury (Lower) Lab Data Result diagrams: 12/07/24 17:40 12/07/24 17:40 <Eliza Kaminski PA-C - Last Filed: 12/07/24 19:42> Labs: Lab Results 12/07/24 12/07/24 Range/Units 17:40 17:57 WBC 7.1 (4.5-10.0) K/mm3 RBC 4.52 (4.2-5.4) M/mm3 Hgb 12.7 (12.0-15.0) g/dL Hct 39.0 (37.0-47.0) % MCV 86.3 (80-100) fl MCH 28.1 (26-34) pg MCHC 32.6 (32-36) g/dl RDW 13.8 (11.5-14.5) % Plt Count 252 (150-375) k/mm3 MPV 10.2 (7.4-10.4) fl Immature Gran % (Auto) 1.0 H (0-0.5) % Neut % (Auto) 56.4 (45.5-73.1) % Lymph % (Auto) 31.5 (18.3-44.2) % Pepin % (Auto) 6.9 (2.6-8.5) % Eos % (Auto) 3.5 (0-4.4) % Baso % (Auto) 0.7 (0.2-1.2) % Lymph # (Auto) 2.23 (0.9-3.2) K/mm3 Pepin # (Auto) 0.5 (0.1-0.6) K/mm3 Eos # (Auto) 0.3 (0-0.3) K/mm3 Baso # (Auto) 0.1 (0.0-0.1) K/mm3 Abs Immat Gran (auto) 0.07 H (0.00-0.031) K/mm3 Absolute Neuts (auto) 4.0 (1.3-6.7) K/mm3 Absolute Nucleated RBC 0.000 (0.0-0.012) K/mm3 Band Neutrophils % Not Reportable Nucleated RBC % 0.0 (0.0-0.2) % Atypical Lymphocytes Present Platelet Estimate Adequate (Adequate) Large Platelets Present Giant Platelets Present Schistocytes None seen ESR 18 (0-20) mm/hr PT 13.9 (11.1-14.7) Seconds INR 1.0 APTT 25.3 (22.3-36.8) Seconds D-Dimer 1.88 H (<0.48) ug/mL Sodium 133 L (137-145) mmol/L Potassium 3.4 (3.4-5.0) mmol/L Chloride 97 L (98-107) mmol/L Carbon Dioxide 26 (22-30) mmol/L Anion Gap 10 (4-12) mmol/L BUN 17 (7-17) mg/dL Creatinine 0.98 (0.7-1.0) mg/dL Estim Creat Clear Calc 96 ml/min Estimated GFR > 60 (59 - ) Glucose 115 H (65-110) mg/dL Calcium 9.3 (8.4-10.2) mg/dL C-Reactive Protein 1.1 (<1.0) mg/dL POC Urine HCG, Qual Negative (Negative) <Eliza Kaminski PA-C - Last Filed: 12/07/24 19:42> Lab Results 12/07/24 12/07/24 Range/Units 17:40 17:57 WBC 7.1 (4.5-10.0) K/mm3 RBC 4.52 (4.2-5.4) M/mm3 Hgb 12.7 (12.0-15.0) g/dL Hct 39.0 (37.0-47.0) % MCV 86.3 (80-100) fl MCH 28.1 (26-34) pg MCHC 32.6 (32-36) g/dl RDW 13.8 (11.5-14.5) % Plt Count 252 (150-375) k/mm3 MPV 10.2 (7.4-10.4) fl Immature Gran % (Auto) 1.0 H (0-0.5) % Neut % (Auto) 56.4 (45.5-73.1) % Lymph % (Auto) 31.5 (18.3-44.2) % Pepin % (Auto) 6.9 (2.6-8.5) % Eos % (Auto) 3.5 (0-4.4) % Baso % (Auto) 0.7 (0.2-1.2) % Lymph # (Auto) 2.23 (0.9-3.2) K/mm3 Pepin # (Auto) 0.5 (0.1-0.6) K/mm3 Eos # (Auto) 0.3 (0-0.3) K/mm3 Baso # (Auto) 0.1 (0.0-0.1) K/mm3 Abs Immat Gran (auto) 0.07 H (0.00-0.031) K/mm3 Absolute Neuts (auto) 4.0 (1.3-6.7) K/mm3 Absolute Nucleated RBC 0.000 (0.0-0.012) K/mm3 Band Neutrophils % Not Reportable Nucleated RBC % 0.0 (0.0-0.2) % Atypical Lymphocytes Present Platelet Estimate Adequate (Adequate) Large Platelets Present Giant Platelets Present Schistocytes None seen ESR 18 (0-20) mm/hr PT 13.9 (11.1-14.7) Seconds INR 1.0 APTT 25.3 (22.3-36.8) Seconds D-Dimer 1.88 H (<0.48) ug/mL Sodium 133 L (137-145) mmol/L Potassium 3.4 (3.4-5.0) mmol/L Chloride 97 L (98-107) mmol/L Carbon Dioxide 26 (22-30) mmol/L Anion Gap 10 (4-12) mmol/L BUN 17 (7-17) mg/dL Creatinine 0.98 (0.7-1.0) mg/dL Estim Creat Clear Calc 96 ml/min Estimated GFR > 60 (59 - ) Glucose 115 H (65-110) mg/dL Calcium 9.3 (8.4-10.2) mg/dL C-Reactive Protein 1.1 (<1.0) mg/dL POC Urine HCG, Qual Negative (Negative) <Navi Grant MD - Last Filed: 12/07/24 18:50> Imaging Data Radiologist's impression: ITS Impressions Venous Doppler Study 12/07/24 16:18 IMPRESSION: Thrombosis in the greater saphenous vein. No deep vein thrombosis. <Navi Grant MD - Last Filed: 12/07/24 18:50> Discharge Plan Discharge Clinical Impression: Superficial thrombophlebitis Qualifiers: Superficial thrombophlebitis-Involved body area: lower extremity Laterality: r ight Qualified Code(s): I80.01 - Phlebitis and thrombophlebitis of superficial vessels of right lower extremity <Eliza Kaminski PA-C - Last Filed: 12/07/24 19:42> Patient Disposition: Home <Eliza Kaminski PA-C - Last Filed: 12/07/24 19:42> Condition: Stable <Eliza Kaminski PA-C - Last Filed: 12/07/24 19:42> Instructions: Superficial Thrombophlebitis (ED) <Eliza Kaminski PA-C - Last Filed: 12/07/24 19:42> Additional Instructions: Return ER if you have difficulty breathing, difficulty swelling, you develop chest pain, you lose consciousness, or you have increased pain/swelling to your right lower extremity. <Eliza Kaminski PA-C - Last Filed: 12/07/24 19:42> Patient Language: Wolof <Eliza Kaminski PA-C - Last Filed: 12/07/24 19:42> Prescriptions: New naproxen 375 mg tablet 375 mg PO BID Qty: 14 0RF <JOANIE Mejía Last Filed: 12/07/24 19:42> Follow-up/Referrals: PHYSICIAN NOT ON STAFF,NONSTAFF [Primary Care Provider] - 1 Week <JOANIE Mejía Last Filed: 12/07/24 19:42>
[2024-12-07 17:37] VITALS: BP 129/73; PULSE 118; RESP 20; O2SAT 100
[2024-12-07 17:46] LABS: Basophils Absolute Auto 0.1 K/mm3 (0.0-0.1); Basophils Percent Auto 0.7 % (0.2-1.2); Eosinophils Absolute Auto 0.3 K/mm3 (0-0.3); Eosinophils Percent Auto 3.5 % (0-4.4); Hemoglobin 12.7 g/dL (12.0-15.0); Immature Granulocyte Absolute 0.07 K/mm3 (0.00-0.031); Lymphocytes Absolute Auto 2.23 K/mm3 (0.9-3.2); Lymphocytes Percent Auto 31.5 % (18.3-44.2); Mean Corpuscular HGB Conc 32.6 g/dl (32-36); Mean Corpuscular Hemoglobin 28.1 pg (26-34); Mean Corpuscular Volume 86.3 fl (80-100); Mean Platelet Volume 10.2 fl (7.4-10.4); Monocytes Absolute Auto 0.5 K/mm3 (0.1-0.6); Monocytes Percent Auto 6.9 % (2.6-8.5); Neutrophils Percent Auto 56.4 % (45.5-73.1); Platelet Count Result 252 k/mm3 (150-375); Red Blood Count 4.52 M/mm3 (4.2-5.4); Red Cell Distribution Width 13.8 % (11.5-14.5); White Blood Count 7.1 K/mm3 (4.5-10.0)
[2024-12-07 17:58] LABS: Giant Platelets Present; Large Platelets Present; Partial Thromboplastin Time 25.3 Seconds (22.3-36.8); Platelet Estimate Adequate (Adequate); Prothrombin Time 13.9 Seconds (11.1-14.7)
[2024-12-07 17:59] LABS: BEDSIDEPREGUCG Negative (Negative)
[2024-12-07 17:59] LABS: Anion Gap 10 mmol/L (4-12); Atypical Lymphocytes Present; Blood Urea Nitrogen 17 mg/dL (7-17); CRP 1.1 mg/dL (<1.0); Calcium 9.3 mg/dL (8.4-10.2); Carbon Dioxide 26 mmol/L (22-30); Chloride 97 mmol/L (98-107); Estimated CRCL calculation 96 ml/min; Estimated Glomerular Filt Rate > 60; Glucose 115 mg/dL (65-110); Potassium 3.4 mmol/L (3.4-5.0); Schistocytes None Seen; Sodium 133 mmol/L (137-145)
[2024-12-07 18:04] LABS: D Dimer 1.88 ug/mL (<0.48)
[2024-12-07 18:11] LABS: Erythrocyte Sedimentation Rate 18 mm/hr (0-20)
--- OUTSIDE RECORDS SUMMARY | 2024-12-07 18:59 | XMS_ITS | Clinical Summary ---
Author Organization [facility] Address [address] [place] [address] Care Team Providers Care Scallop Cutter Name Role Phone Karen Mojica MD Primary Care Provider Source Comments [facility],non-owned Affiliates and Associated Physician Practices is amultiple site organization consisting of ambulatory clinics and hospital sitesin [place], [place], [place] and [place]. This disclosure is being madepursuant to the Care Everywhere program and may not contain all information available regarding this patient. Last updated 18.[facility] Allergies Active Allergy Reactions Criticality Noted Date [...] complication, without long-term current use of insulin ([facility]) Use 1 (one) strip once daily 100 strip 4 10/30/19 25 Active Blood Glucose Monitoring Suppl (GlucoCom Monitor) w/Device KITIndications: Type 2 diabetes mellitus without complication, without long-term current use of insulin ([facility]) Use 1 device as directed 1 kit 10/30/19 25 Active lancets MISCIndications :Type 2 diabetes mellitus without complication, without long-term current use of insulin ([facility]) Use 1 Each once daily 100 Each 4 10/30/19 25 Active ONETOUCH DELICA PLUS 30G FINE LANCETS 1 Each once daily 10/31/19 25 Active Semaglutide(0.2 5 or 0.5MG/DOS) 2 MG/3ML Solution Pen-injector (Ozempic (0.25 or 0.5 MG/DOSE))Indica tions:Type 2 diabetes mellitus without complication, without long-term current use of insulin ([facility]),Class 3 severe obesity due to excess calories with serious comorbidity and body mass index (BMI) of 45.0 to 49.9 in adult ([facility]),Metabolic dysfunction-ass ociated steatotic liver disease (MASLD) Inject [...] (BMI) of 45.0 to 49.9 in adult ([facility]) Inject 2.5 (two and one-half) mg subcutaneously every 7 days 2 mL 09/18/19 25 025 Discontin ued(Tx Complete) tirzepatide (Zepbound) 5 MG/0.5ML injectionIndica tions:Class 3 severe obesity due to excess calories with serious comorbidity and body mass index (BMI) of 45.0 to 49.9 in adult ([facility]) Inject 5 (five) mg subcutaneously every 7 days 2 mL 09/18/19 25 025 Discontin ued(List Clean-Up) tirzepatide (Zepbound) 7.5 MG/0.5ML injectionIndica tions:Class 3 severe obesity due to excess calories with serious comorbidity and body mass index (BMI) of 45.0 to 49.9 in adult ([facility]) Inject 7.5 (seven and one-half) mg subcutaneously every 7 days 2 mL 09/18/19 25 025 Discontin ued(List Clean-Up) tirzepatide (Zepbound) 10 MG/0.5ML injectionIndica tions:Class 3 severe obesity due to excess calories with serious comorbidity and body mass index (BMI) of 45.0 to 49.9 in adult ([facility]) Inject 10 (ten) mg subcutaneously every 7 days 2 mL 3 09/18/19 25 025 Discontin ued(List Clean-Up) Semaglutide(0.2 5 or 0.5MG/DOS) 2 MG/3ML Solution Pen-injector (Ozempic (0.25 or 0.5 MG/DOSE))Indica tions:Type 2 diabetes mellitus without complication, without long-term current use of insulin ([facility]),Class 3 severe obesity due to excess calories with serious comorbidity and body mass index (BMI) of 45.0 to 49.9 in adult ([facility]),Metabolic dysfunction-ass ociated steatotic liver disease (MASLD) Inject [...] - 12/02/2024 11:59 PM CDT Hospital Encounter [facility] - Diabetes Education [address] [place] [address] Karen Mojica MD Discharge Disposition: Home or Self Care 12/02/2024 Travel 11/28/2024 11:00 AM CDT Office Visit [facility] - Family Medicine [address] [place] [phone] Karen Mojica MD Type 2 diabetes mellitus without complication, without long-term current use of insulin (HCC) (Primary Dx); Class 3 severe obesity due to excess calories with serious comorbidity and body mass index (BMI) of 45.0 to 49.9 in adult (HCC); Metabolic dysfunction-associa lion steatotic liver disease (MASLD); Hypertension, unspecified type 11/25/2024 9:00 AM CDT - 11/25/2024 11:59 PM CDT Hospital Encounter [facility] Diabetes Education [address] [place] [phone] Karen Mojica MD Discharge Disposition: Home or Self Care 11/25/2024 Travel 11/18/2024 9:00 AM CDT - 11/18/2024 11:59 PM CDT Hospital Encounter [facility] Diabetes Education [address] [place] [phone] Karen Mojica MD Discharge Disposition: Home or Self Care 11/11/2024 9:00 AM CDT - 11/11/2024 11:59 PM CDT Hospital Encounter [facility] Diabetes [address] [address] Karen Mojica MD Discharge Disposition: Home or Self Care 10/29/2024 9:00 AM CDT - 10/29/2024 11:59 PM CDT Hospital Encounter [facility] Diabetes Education [address] [place] [phone] Karen Mojica MD Discharge Disposition: Home or Self Care 10/29/2024 Nurse Triage [facility] Family [address] [phone] Karen Mojica MD Order 10/28/2024 8:30 AM CDT - 10/28/2024 11:59 PM CDT Hospital Encounter [facility] NUTRITION [address] [place] [phone] Karen Mojica MD Discharge Disposition: Home or Self Care 10/23/2024 Travel 10/21/2024 10:00 AM CDT Office Visit [facility] Family [address] [phone] Karen Mojica MD Type 2 diabetes mellitus without complication, without long-term current use of insulin (Primary Dx); Class 3 severe obesity due to excess calories with serious comorbidity and body mass index (BMI) of 45.0 to 49.9 in adult; Hypertension, unspecified type; Metabolic dysfunction-associa lion steatotic liver disease (MASLD); Sinusitis, unspecified chronicity, unspecified location 10/21/2024 Travel 09/21/2024 8:23 AM PEDIATRIC ACUTE CARE UNIT NURSE - 09/21/2024 11:59 PM PEDIATRIC ACUTE CARE UNIT NURSE Hospital Encounter [facility] MRI [address] [place] [address] Juju Almaraz MD Discharge Disposition: Home or Self Care 09/21/2024 Travel 09/19/2024 Telephone [facility] Physician [address] [phone] Saida Dixon, RN Appointment 09/18/2024 1:30 PM PEDIATRIC ACUTE CARE UNIT NURSE Office Visit [facility] Physician [address] [phone] Lito Beckett III, MD Class 3 severe obesity due to excess calories with serious comorbidity and body mass index (BMI) of 45.0 to 49.9 in adult (Primary Dx); Metabolic dysfunction-associa lion steatotic liver disease (MASLD); Metabolic syndrome; Prediabetes 09/18/2024 Travel 09/11/2024 2:43 PM PEDIATRIC ACUTE CARE UNIT NURSE - 09/11/2024 11:59 PM PEDIATRIC ACUTE CARE UNIT NURSE Hospital Encounter [facility] LAB OP DRAW STATION [address] [place] [address] Discharge Disposition: Home or Self Care 09/11/2024 1:30 PM PEDIATRIC ACUTE CARE UNIT NURSE Office Visit [facility] Physician [address] [phone] Karen Mojica MD Syn, Wing-Kin, MD Metabolic [...] on file Legal Sex Female 1:58 PM PEDIATRIC ACUTE CARE UNIT NURSE Gender Identity Not on file Sexual Orientation [...] Visit [facility] - GI [address] [facility], [place] [phone] Juju Almaraz MD [address] [facility] [address] [place] [phone] 12/30/2024 9:40 AM CDT Office Visit [facility] - Family Medicine [address] [facility], [address] [phone] Karen Mojica MD [address] [place] [address] 01/29/2025 3:00 PM CDT Office Visit [facility] - [address], [place] [phone] Lito Beckett III, MD [address] [facility] [address] [place] [phone] 02/25/2025 9:00 AM CDT Office Visit [facility] - General Dermatology [address], [facility] [address] [place] [address] Gabriella Alexander, [address] [place] [address] Health Maintenance Due Date Last [...] Management General On track( 025 2:15 PM PEDIATRIC ACUTE CARE UNIT NURSE) Saida Dick, CAROLINE Note: Expected end date: ongoing Interventions: Take all medications as prescribed Procedures Procedure Name Priority Date/Time Associated Diagnosis Comments HEMOGLOBIN A1C Routine 09/26/2024 8:19 AM PEDIATRIC ACUTE CARE UNIT NURSE Prediabetes MRI ELASTOGRAPHY Routine 09/21/2024 9:23 AM PEDIATRIC ACUTE CARE UNIT NURSE Hepatic steatosis HEPATITIS C ANTIBODY Routine 09/11/2024 3:02 PM PEDIATRIC ACUTE CARE UNIT NURSE Hepatic steatosis HEPATITIS B CORE ANTIBODY TOTAL Routine 09/11/2024 3:02 PM PEDIATRIC ACUTE CARE UNIT NURSE Hepatic steatosis MITOCHONDRIAL ANTIBODY SCREEN Routine 09/11/2024 3:02 PM PEDIATRIC ACUTE CARE UNIT NURSE Hepatic steatosis TISSUE TRANSGLUTAMINASE AB IGA Routine 09/11/2024 3:02 PM PEDIATRIC ACUTE CARE UNIT NURSE Hepatic steatosis IGG SUBCLASS 4 Routine 09/11/2024 3:02 PM PEDIATRIC ACUTE CARE UNIT NURSE Hepatic steatosis IGG BLOOD Routine 09/11/2024 3:02 PM PEDIATRIC ACUTE CARE UNIT NURSE Hepatic steatosis FERRITIN Routine 09/11/2024 3:02 PM PEDIATRIC ACUTE CARE UNIT NURSE Hepatic steatosis CERULOPLASMIN Routine 09/11/2024 3:02 PM PEDIATRIC ACUTE CARE UNIT NURSE Hepatic steatosis ROBBY BLOOD SCREEN W/REFLEX TITER Routine 09/11/2024 3:02 PM PEDIATRIC ACUTE CARE UNIT NURSE Hepatic steatosis ENDOMYSIAL ANTIBODY IGA Routine 09/11/19 3:02 PM PEDIATRIC ACUTE CARE UNIT NURSE Hepatic steatosis IGA BLOOD Routine 09/11/2024 3:02 PM PEDIATRIC ACUTE CARE UNIT NURSE Hepatic steatosis SLA AUTOANTIBODY Routine 09/11/2024 3:02 PM PEDIATRIC ACUTE CARE UNIT NURSE Hepatic steatosis MICROSOMAL ANTIBODY LIVER/KIDNEY Routine 09/11/2024 3:02 PM PEDIATRIC ACUTE CARE UNIT NURSE Hepatic steatosis IGM BLOOD Routine 09/11/2024 3:02 PM PEDIATRIC ACUTE CARE UNIT NURSE Hepatic steatosis [id number] BLOOD Routine 09/11/2024 3:02 PM PEDIATRIC ACUTE CARE UNIT NURSE Hepatic steatosis CBC W AUTO DIFFERENTIAL Routine 09/11/19 25 3:02 PM PEDIATRIC ACUTE CARE UNIT NURSE Hepatic steatosis COMPREHENSIVE METABOLIC PANEL Routine 09/11/2024 3:02 PM PEDIATRIC ACUTE CARE UNIT NURSE Hepatic steatosis PT-INR SLH Routine 09/11/2024 3:02 PM PEDIATRIC ACUTE CARE UNIT NURSE Hepatic steatosis LIVER CYTOSOLIC AG TYPE 1 (LC-1) AB IGG Routine 09/11/2024 3:02 PM PEDIATRIC ACUTE CARE UNIT NURSE Hepatic steatosis SMOOTH MUSCLE ANTIBODY W REFLEX TITER Routine 09/11/2024 3:02 PM PEDIATRIC ACUTE CARE UNIT NURSE Hepatic steatosis from Last 3 Months Results * (ABNORMAL) HEMOGLOBIN A1C (09/26/2024 8:19 AM PEDIATRIC ACUTE CARE UNIT NURSE) Hemoglobin A1c 7.0(H) <5.7 % of total [...] of diabetes for children. Test Performed at: [facility] [phone] SIXTO DAUGHERTY MD Blood BLOOD SPECIMEN / Unknown 09/26/2024 8:19 AM PEDIATRIC ACUTE CARE UNIT NURSE 09/26/2024 8:19 AM PEDIATRIC ACUTE CARE UNIT NURSE Lito Beckett III, MD LAB - CHEMISTRY ORDERABLE S Final Result [facility] [id number] [place] [address] * MRI Elastography (09/21/2024 9:23 AM PEDIATRIC ACUTE CARE UNIT NURSE) Anatomical Region Laterality Modality Abdomen Magnetic Resonan ce 09/23/2024 10:2 6 AM PEDIATRIC ACUTE CARE UNIT NURSE Impressions 09/23/2024 10:58 AM PEDIATRIC ACUTE CARE UNIT NURSE IMPRESSION: 1.Mean liver stiffness: 2.7 kPa. MR [...] 09/23/2024 10:58 AM Narrative 09/23/2024 10:58 AM PEDIATRIC ACUTE CARE UNIT NURSE PROCEDURE: MRI ELASTOGRAPHY, DATE/TIME OF EXAM: 09/21/2024 9:23 AM, LOCATION [facility] INDICATION: K76.0: Hepatic steatosis ADDITIONAL CLINICAL INFORMATION: Ordering Provider Reason For Exam: Cocnern for [facility] Technologist Note: Additional: COMPARISON: None. Protocol: Magnetic [...] DATE/TIME OF EXAM: 09/21/2024 9:23 AM, LOCATION [facility] INDICATION: K76.0: Hepatic steatosis ADDITIONAL CLINICAL INFORMATION: Ordering Provider Reason For Exam: [facility]nern [facility] Technologist Note: Additional: COMPARISON: None. [...] MD MR ORDERABLES Final Result * PT-INR [facility] (09/11/2024 3:02 PM PEDIATRIC ACUTE CARE UNIT NURSE) PT 13.1 12.1 - 14.8 Seconds 09/11/2024 3:48 PM PEDIATRIC ACUTE CARE UNIT NURSE [facility] INR 1.0 See Comment 09/11/2024 3:48 PM PEDIATRIC ACUTE CARE UNIT NURSE [facility] Comment:The suggested therap eutic range for standard coumadin (warfarin) therapy is an INR of 2.0-3.0. For high-risk patients (Mechanical Mitral Valve Prosthesis, etc.), the suggested prophylactic therapeutic range is an INR of 2.5-3.5. Blood BLOOD SPECIMEN / Unknown Lab Venipuncture / Unknown 09/11/2024 3:02 PM PEDIATRIC ACUTE CARE UNIT NURSE 09/11/2024 3:18 PM PEDIATRIC ACUTE CARE UNIT NURSE Juju Almaraz MD LAB - COAGULATION ORDERABLES Fin al Result [facility] [address] [place] [phone], [facility] [phone] * SOLUBLE LIVER ANTIGEN (SLA) ANTIBODY (09/11/2024 3:02 PM PEDIATRIC ACUTE CARE UNIT NURSE) Soluable Liver Antigen Antibody IgG 1.9 0.0 - 24.9 U 09/15/2024 7:45 PM PEDIATRIC ACUTE CARE UNIT NURSE [facility] ([facility]) Comment: REFERENCE INTERVAL: Soluble Liver Antigen Antibody, IgG 0.0 - 20.0 U ........... Negative 20.1 - 24.9 U ........... Equivocal 25.0 U or greater ....... Positive The presence of SLA antibodies has almost 100% specificity for autoimmune hepatitis, although only 12-30% have these antibodies. Thus, a negative SLA IgG test does not rule out autoimmune hepatitis. Performed by [facility], [address] [place] [address] [email or web address], Gonsalo Montiel MD, Lab. Director CLIA Number: [id number] Blood BLOOD SPECIMEN / Unknown Lab Venipuncture / Unknown 09/11/2024 3:02 PM PEDIATRIC ACUTE CARE UNIT NURSE 09/11/2024 3:18 PM PEDIATRIC ACUTE CARE UNIT NURSE Juju Almaraz MD LAB - SEROLOGY ORDERABLES Final Result Performing Organization Address [facility] [address] [facility] de Phone Number [facility]) [address] [place] [address] * IGG SUBCLASS 4 (09/11/2024 3:02 PM PEDIATRIC ACUTE CARE UNIT NURSE) IgG Subclass 4 70 1 - 123 mg/dL 09/14/2024 12:43 AM PEDIATRIC ACUTE CARE UNIT NURSE [facility] ([facility]) Comment: REFERENCE INTERVAL: Immunoglobulin G Subclass 4 Access complete set of age- and/or gender-specific reference intervals for this test in the [facility] Test Directory ([facility]). Performed By: [facility] [address] [place] [address] [employer] Teacher: Jonathan Acevedo MD, PhD CLIA Number: [id number] Blood BLOOD SPECIMEN / Unknown Lab Venipuncture / Unknown 09/11/2024 3:02 PM PEDIATRIC ACUTE CARE UNIT NURSE 09/11/2024 3:18 PM PEDIATRIC ACUTE CARE UNIT NURSE Juju Almaraz MD LAB - CHEMISTRY ORDERABLES Final Result Performing Organization Address [facility] [address]/ZIP Co de Phone Number [facility] ([facility]) [address] [place] [address] * LIVER CYTOSOLIC AG TYPE 1 (LC-1) AB IGG (09/11/2024 3:02 PM PEDIATRIC ACUTE CARE UNIT NURSE) Pathologist [facility] Liver Cytosolic Type 1 IgG Negative Negative 09/16/2024 5:55 PM PEDIATRIC ACUTE CARE UNIT NURSE [facility] ([facility]) Comment: Performed By: [facility] [address] [place] [address] [employer] Teacher: Jonathan Acevedo MD, PhD CLIA Number: [id number] Blood BLOOD SPECIMEN / Unknown Lab Venipuncture / Unknown 09/11/2024 3:02 PM PEDIATRIC ACUTE CARE UNIT NURSE 09/11/2024 3:18 PM PEDIATRIC ACUTE CARE UNIT [facility] LAB - CHEMISTRY ORDERABLES Final Result [facility]) [address] [place] [address] * SMOOTH MUSCLE ANTIBODY W REFLEX TITER (09/11/2024 3:02 PM PEDIATRIC ACUTE CARE UNIT NURSE) Pathologist [facility] F-Actin Antibody IgG 4 0 - 19 Units 09/14/2024 11:35 AM PEDIATRIC ACUTE CARE UNIT NURSE [facility] ([facility]) Comment: If F-Actin (Smooth Muscle) Antibody, IgG [...] suspicion for AIH is strong. Performed By: [facility] [address] [place] [address] [employer] Teacher: Jonathan Acevedo MD, PhD CLIA Number: [id number] Blood BLOOD SPECIMEN / Unknown Lab Venipuncture / Unknown 09/11/2024 3:02 PM PEDIATRIC ACUTE CARE UNIT NURSE 09/11/2024 3:18 PM PEDIATRIC ACUTE CARE UNIT NURSE Juju Almaraz MD LAB - SEROLOGY ORDERABLES Final Result Performing Organization Address [facility] [address]/[facility] de Phone Number [facility]) [address] * MITOCHONDRIAL ANTIBODY SCREEN (09/11/2024 3:02 PM PEDIATRIC ACUTE CARE UNIT NURSE) Mitochondrial M2 Antibody 12.1 0.0 - 24.9 Units 09/14/2024 11:35 AM PEDIATRIC ACUTE CARE UNIT NURSE [facility] ([facility]) Comment: REFERENCE INTERVAL: Mitochondrial (M2) Antibody, IgG [...] does not rule out PBC. Performed By: [facility] [address] [place] [address] [employer] Teacher: Jonathan Acevedo MD, PhD CLIA Number: [id number] Blood BLOOD SPECIMEN / Unknown Lab Venipuncture / Unknown 09/11/2024 3:02 PM PEDIATRIC ACUTE CARE UNIT NURSE 09/11/2024 3:18 PM PEDIATRIC ACUTE CARE UNIT NURSE us Juju Almaraz MD LAB - CHEMISTRY ORDERABLES Final Result Performing Organization Address [facility] [address] [facility] Co de Phone Number [facility]) [address] [place] [address] * TISSUE TRANSGLUTAMINASE AB IGA (09/11/2024 3:02 PM PEDIATRIC ACUTE CARE UNIT NURSE) [id number]|2024-12-07 18:02:17|2024-12-07 18:02:17|ED.TITORII||||"HPI - Nausea/Vomiting/Diarrhea General Chief complaint: Nausea/Vomiting/Diarrhea <Vicky Ernandez MD - Last Filed: 12/10/24 18:38> Stated complaint: not keeping milk down <Vicky Ernandez MD - Last Filed: 12/10/24 18:38> Time Seen by Provider: 12/07/24 15:05 <Vicky Ernandez MD - Last Filed: 12/10/24 18:38> History of Present Illness HPI Narrative: 29-day-old ex term male who presents with worsening emesis and feeding intolerance. Symptoms began approximately 1 week ago with NBNB emesis occurring after feeds. It is increased in frequency and parents reported as forceful. It happens after every feed and often in between feeds. They reported is mostly a collar formula, sometimes it is clear. Three days ago they switched formula to Similac Total Comfort with no improvement. Patient usually takes approximately 4 oz Q 3-4 hours; parents have decrease this to 2 oz due to concerns for emesis. Parents are mixing formula appropriately. Patient continues to be hungry in between feeds. Mother reports last BM approximately 2 days ago. They deny fevers, diarrhea, rash, cough, congestion, fussiness, lethargy. was born full-term and required brief NICU hospitalization for respiratory distress on bubble CPAP. Immunizations up-to-date <Vicky Ernandez MD - Last Filed: 12/10/24 18:38> Related Data Allergies/Adverse reactions: Allergies Allergy/AdvReac Type Severity Reaction Status Date / Time No Known Allergies Allergy Verified 11/08/24 12:32 <Vicky Ernandez MD - Last Filed: 12/10/24 18:38> Review of Systems Review of Systems: All systems reviewed & are unremarkable except as noted in HPI and below (HPI) <Vicky Ernandez MD - Last Filed: 12/10/24 18:38> Exam Narrative: General:: Well-developed, well-nourished; no apparent distress Head:: AFSF, sutures opposed Eyes:: lids and lacrimal system are normal in appearance; conjunctivae normal; red reflex present x2 Ears:: normal positioning; no tags; no pits Nose:: normal appearance Oropharynx:: normal and moist mucosa; normal palate; normal tongue; normal posterior pharynx Neck:: normal appearance; no masses Clavicles:: no crepitus Respiratory:: lungs clear to auscultation; no grunting or retracting Cardiovascular:: RRR, normal S1 and S2; 2/6 systolic murmur loudest at left lower sternal border and apex; radiates to axilla and back. 2+ femoral pulses left and right; no central cyanosis; normal capillary refill Gastrointestinal:: nondistended; normal bowel sounds; soft; no organomegaly; no masses; normal umbilical stump Genitourinary:: normal appearance of external genitalia Back:: no deep sacral dimple or sacral abe of hair Integument:: without significant rashes or lesions Musculoskeletal:: normal range of motion of all major muscle groups; negative Ortolani and Putnam Neurological:: normal tone; normal Vj; normal cry; normal suck <Vicky Ernandez MD - Last Filed: 12/10/24 18:38> Course Course Emergency Course: 2014 -- labs fairly unremarkable as documented -- no hypochloremia, no acidosis. Discussed with Dr. Steele at [facility] who recommends transfer for pyloric imaging. <Vicky Ernandez MD - Last Filed: 12/10/24 18:38> 2014 -- labs fairly unremarkable as documented -- no hypochloremia, no acidosis. Discussed with Dr. Steele atr [facility] who recommends transfer for pyloric imaging. <Jose Jaquez MD - Last Filed: 12/08/24 00:46> Vital Signs Vital signs: Vital Signs Temperature 98.6 F 12/07/24 14:12 Pulse Rate 180 12/07/24 14:12 Respiratory Rate 40 12/07/24 14:12 Pulse Oximetry 98 12/07/24 14:12 Oxygen Delivery Room Air 12/07/24 14:12 Temperature 98.6 F 12/07/24 14:12 Pulse Rate 164 12/07/24 21:07 Respiratory Rate 36 12/07/24 21:07 Pulse Oximetry 100 12/07/24 21:07 Oxygen Delivery Room Air 12/07/24 14:12 <Vicky Ernandez MD - Last Filed: 12/10/24 18:38> Vital Signs Temperature 98.6 F 12/07/24 14:12 Pulse Rate 180 12/07/24 14:12 Respiratory Rate 40 12/07/24 14:12 Pulse Oximetry 98 12/07/24 14:12 Oxygen Delivery Room Air 12/07/24 14:12 Temperature 98.6 F 12/07/24 14:12 Pulse Rate 164 12/07/24 21:07 Respiratory Rate 36 12/07/24 21:07 Pulse Oximetry 100 12/07/24 21:07 Oxygen Delivery Room Air 12/07/24 14:12 <Jose Jaquez MD - Last Filed: 12/08/24 00:46> Transfer Transfered to: [facility] <Jose Jaquez MD - Last Filed: 12/08/24 00:46> Transportation: Other (private car) <Jose Jaquez MD - Last Filed: 12/08/24 00:46> Transfer rationale: suspected pyloric stenosis <Jose Jaquez MD - Last Filed: 12/08/24 00:46> Accepting physician: Dr. Payton <Jose Jaquez MD - Last Filed: 12/08/24 00:46> Transfer comments: Discussed with Dr. Steele who recommended transfer for pyloric US. Family offered ambulance transfer and prefer private car <Jose Jaquez MD - Last Filed: 12/08/24 00:46> MDM - Nausea/Vomiting/Diarrhea MDM Narrative Medical decision making narrative: 29-day-old healthy-appearing male presenting with worsening NBNB emesis x1 week. Patient is not displaying any other signs/symptoms of infection. Patient is overall well appearing on exam without obvious concern for dehydration or altered mental status. Low suspicion for infectious process based on clinical history provided. Concern for obstructive process, including but not limited to pyloric stenosis versus ileus. KUB and labs ordered. <Vicky Ernandez MD - Last Filed: 12/10/24 18:38> Lab Data Result diagrams: 12/07/24 18:21 12/07/24 18:39 <Vicky Ernandez MD - Last Filed: 12/10/24 18:38> Labs: Lab Results 12/07/24 12/07/24 12/07/24 Range/Units 16:08 16:16 18:21 WBC Cancelled RBC Cancelled Hgb Cancelled Hct Cancelled MCV Cancelled MCH Cancelled MCHC Cancelled RDW Cancelled Plt Count Cancelled MPV Cancelled Immature Gran % (Auto) Cancelled Neut % (Auto) Cancelled Lymph % (Auto) Cancelled Surry % (Auto) Cancelled Eos % (Auto) Cancelled Baso % (Auto) Cancelled Lymph # (Auto) Cancelled Surry # (Auto) Cancelled Eos # (Auto) Cancelled Baso # (Auto) Cancelled Abs Immat Gran (auto) Cancelled Absolute Neuts (auto) Cancelled Absolute Nucleated RBC Cancelled Nucleated RBC % Cancelled % Immature Plt Fraction Cancelled Sodium Cancelled Potassium Cancelled Chloride Cancelled Carbon Dioxide Cancelled Anion Gap Cancelled BUN Cancelled Creatinine Cancelled Estim Creat Clear Calc Cancelled Estimated GFR Cancelled Glucose Cancelled POC Capillary Glucose 75 (65-105) mg/dl Calcium Cancelled Magnesium Cancelled Total Bilirubin Cancelled AST Cancelled ALT Cancelled Alkaline Phosphatase Cancelled Total Protein Cancelled Albumin Cancelled Amylase Cancelled Lipase 35 (10-85) U/L Procalcitonin 0.1 ng/mL Urine Color (Yellow) Urine Appearance (Clear) Urine pH (5.0-9.0) Ur Specific [place] (1.001-1.035) Urine Protein (Negative) mg/dL Urine Glucose (UA) (Negative) mg/dL Urine Ketones (Negative) mg/dL Ur Blood (Man) (Negative) Urine Nitrate (Negative) Urine Bilirubin (Negative) Urine Urobilinogen (<2.0) mg/dL Leukocyte Esterase Rfl (Negative) JUAN/UL Influenza A (RT-PCR) (Negative) Influenza B (RT-PCR) (Negative) RSV (RT-PCR) (Negative) SARS-CoV-2 RNA (RT-PCR) (Negative) 12/07/24 12/07/24 Range/Units 18:25 18:39 WBC RBC Hgb Hct MCV MCH MCHC RDW Plt Count MPV Immature Gran % (Auto) Neut % (Auto) Lymph % (Auto) [place] % (Auto) Eos % (Auto) Baso % (Auto) Lymph # (Auto) [place] # (Auto) Eos # (Auto) Baso # (Auto) Abs Immat Gran (auto) Absolute Neuts (auto) Absolute Nucleated RBC Nucleated RBC % % Immature Plt Fraction Sodium 134 Potassium 5.0 Chloride 100 Carbon Dioxide 26 Anion Gap 8 BUN 18 H Creatinine 0.34 Estim Creat Clear Calc Not Reportable Estimated GFR Not Reportable Glucose 67 POC Capillary Glucose (65-105) mg/dl Calcium 10.5 Magnesium 2.5 H Total Bilirubin 2.0 H AST 45 ALT 29 Alkaline Phosphatase 200 Total Protein 6.0 Albumin 4.0 Amylase 37 H Lipase (10-85) U/L Procalcitonin ng/mL Urine Color Yellow (Yellow) Urine Appearance Clear (Clear) Urine pH 8.0 (5.0-9.0) Ur Specific [place] 1.012 (1.001-1.035) Urine Protein Negative (Negative) mg/dL Urine Glucose (UA) Negative (Negative) mg/dL Urine Ketones Negative (Negative) mg/dL Ur Blood (Man) Negative (Negative) Urine Nitrate Negative (Negative) Urine Bilirubin Negative (Negative) Urine Urobilinogen 1.0 (<2.0) mg/dL Leukocyte Esterase Rfl Negative (Negative) JUAN/UL Influenza A (RT-PCR) Negative (Negative) Influenza B (RT-PCR) Negative (Negative) RSV (RT-PCR) Negative (Negative) SARS-CoV-2 RNA (RT-PCR) Negative (Negative) <Vicky Ernandez MD - Last Filed: 12/10/24 18:38> Lab Results 12/07/24 12/07/24 12/07/24 Range/Units 16:08 16:16 18:21 WBC Cancelled RBC Cancelled Hgb Cancelled Hct Cancelled MCV Cancelled MCH Cancelled MCHC Cancelled RDW Cancelled Plt Count Cancelled MPV Cancelled Immature Gran % (Auto) Cancelled Neut % (Auto) Cancelled Lymph % (Auto) Cancelled [place] % (Auto) Cancelled Eos % (Auto) Cancelled Baso % (Auto) Cancelled Lymph # (Auto) Cancelled [place] # (Auto) Cancelled Eos # (Auto) Cancelled Baso # (Auto) Cancelled Abs Immat Gran (auto) Cancelled Absolute Neuts (auto) Cancelled Absolute Nucleated RBC Cancelled Nucleated RBC % Cancelled % Immature Plt Fraction Cancelled Sodium Cancelled Potassium Cancelled Chloride Cancelled Carbon Dioxide Cancelled Anion Gap Cancelled BUN Cancelled Creatinine Cancelled Estim Creat Clear Calc Cancelled Estimated GFR Cancelled Glucose Cancelled POC Capillary Glucose 75 (65-105) mg/dl Calcium Cancelled Magnesium Cancelled Total Bilirubin Cancelled AST Cancelled ALT Cancelled Alkaline Phosphatase Cancelled Total Protein Cancelled Albumin Cancelled Amylase Cancelled Lipase 35 (10-85) U/L Procalcitonin 0.1 ng/mL Urine Color (Yellow) Urine Appearance (Clear) Urine pH (5.0-9.0) Ur Specific [place] (1.001-1.035) Urine Protein (Negative) mg/dL Urine Glucose (UA) (Negative) mg/dL Urine Ketones (Negative) mg/dL Ur Blood (Man) (Negative) Urine Nitrate (Negative) Urine Bilirubin (Negative) Urine Urobilinogen (<2.0) mg/dL Leukocyte Esterase Rfl (Negative) JUAN/UL Influenza A (RT-PCR) (Negative) Influenza B (RT-PCR) (Negative) RSV (RT-PCR) (Negative) SARS-CoV-2 RNA (RT-PCR) (Negative) 12/07/24 12/07/24 Range/Units 18:25 18:39 WBC RBC Hgb Hct MCV MCH MCHC RDW Plt Count MPV Immature Gran % (Auto) Neut % (Auto) Lymph % (Auto) [place] % (Auto) Eos % (Auto) Baso % (Auto) Lymph # (Auto) [place] # (Auto) Eos # (Auto) Baso # (Auto) Abs Immat Gran (auto) Absolute Neuts (auto) Absolute Nucleated RBC Nucleated RBC % % Immature Plt Fraction Sodium 134 Potassium 5.0 Chloride 100 Carbon Dioxide 26 Anion Gap 8 BUN 18 H Creatinine 0.34 Estim Creat Clear Calc Not Reportable Estimated GFR Not Reportable Glucose 67 POC Capillary Glucose (65-105) mg/dl Calcium 10.5 Magnesium 2.5 H Total Bilirubin 2.0 H AST 45 ALT 29 Alkaline Phosphatase 200 Total Protein 6.0 Albumin 4.0 Amylase 37 H Lipase (10-85) U/L Procalcitonin ng/mL Urine Color Yellow (Yellow) Urine Appearance Clear (Clear) Urine pH 8.0 (5.0-9.0) Ur Specific [place] 1.012 (1.001-1.035) Urine Protein Negative (Negative) mg/dL Urine Glucose (UA) Negative (Negative) mg/dL Urine Ketones Negative (Negative) mg/dL Ur Blood (Man) Negative (Negative) Urine Nitrate Negative (Negative) Urine Bilirubin Negative (Negative) Urine Urobilinogen 1.0 (<2.0) mg/dL Leukocyte Esterase Rfl Negative (Negative) JUAN/UL Influenza A (RT-PCR) Negative (Negative) Influenza B (RT-PCR) Negative (Negative) RSV (RT-PCR) Negative (Negative) SARS-CoV-2 RNA (RT-PCR) Negative (Negative) <Jose Jaquez MD - Last Filed: 12/08/24 00:46> Discharge Plan Discharge Clinical Impression: Projectile vomiting <Vicky Ernandez MD - Last Filed: 12/10/24 18:38> Patient Disposition: Pediatric Hospital <Vicky Ernandez MD - Last Filed: 12/10/24 18:38> Condition: Stable <Vicky Ernandez MD - Last Filed: 12/10/24 18:38> Additional Instructions: As discussed, with repetitive projectile vomiting we are concerned about pyloric stenosis, or enlargement of the muscle at the outlet of the stomach. This is diagnosed by ultrasound, but the ultrasound is specialized and performed only at pediatric facilities. Recommend transfer to [facility] by private car as requested for further evaluation by Pediatric surgery. The address for [facility] is [address] [place] [address]. The ER phone number is [phone]. They are expecting Leo and will evaluate him upon arrival. In the event that the ultrasound is negative, I have also attached information regarding Enfamil AR, the formula that we discussed. <Vicky Ernandez MD - Last Filed: 12/10/24 18:38> Patient Language: Chinese <Vicky Ernandez MD - Last Filed: 12/10/24 18:38> Follow-up/Referrals: Jane Lugo MD [Primary Care Provider] - <Vicky Ernandez MD - Last Filed: 12/10/24 18:38> Time of Disposition: 20:24 <Vicky Ernandez MD - Last Filed: 12/10/24 18:38> 20:24 <Jose Jaquez MD - Last Filed: 12/08/24 00:46>"
== END 2024-12-07 19:17 | disposition home or self-care (01) ==
LOC: ANHED 18:57
PROVIDERS: Physician Assistant; Emergency Provider Emergency Medicine
DX: I82.811 Embolism and thrombosis of superficial veins of right lower extremity (principal); E11.9 Type 2 diabetes mellitus without complications
CPT/HCPCS: 36415; 80048; 81025; 85025; 85380; 85610; 85652; 85730; 86140; 93971; 99284